=== PATIENT | male | born 1965 | race Hispanic/Latino ===

== ENCOUNTER 2016-11-19 03:23 | Emergency (ER) | payer OTHER ==
[2016-11-19 03:23] VITALS: BMI 37.3
[2016-11-19 03:36] VITALS: BP 111/75; PULSE 85; RESP 20; TEMP 98.2; O2SAT 99
[2016-11-19] MEDS ORDERED: Oxycodone/Acetaminophen 5/325 mg Tab PO STA (03:39)
--- NOTE | 2016-11-19 03:40 | C.PDOC ---
History Of Present Illness 51 year old male who presents to the ER with a complaint of right knee pain for the past 4 days after twisting it while walking. Patient states he has a Hx of chronic right knee pain with a prior meniscus repair. Patient tried to get in contact with his orthopedist but states he is away on vacation. Patient has not had any relief with ibuprofen or tramadol; denies weakness or numbness. History Per: Patient History/Exam Limitations: no limitations Onset/Duration Of Symptoms: Days Current Symptoms Are (Timing): Still Present Recent travel outside of the [place]: No - Knee Description Of Injury: Twisted Past Medical History Reviewed: Historical Data, Nursing Documentation, Vital Signs Vital Signs: Last Vital Signs Temp 98.2 F 11/19/16 03:34 Pulse 85 11/19/16 03:34 Resp 20 11/19/16 03:34 BP 111/75 11/19/16 03:34 Pulse Ox 99 11/19/16 03:51 - Medical History PMH: Arthritis Surgical History: No Surg Hx Family History: States: Unknown Family Hx - Social History Hx Tobacco Use: Yes (half a pack a day ) Hx Alcohol Use: Yes Hx Substance Use: No - Immunization History Hx Tetanus Toxoid Vaccination: No Hx Influenza Vaccination: No Hx Pneumococcal Vaccination: No Review Of Systems Musculoskeletal: Positive for: Leg Pain Neurological: Negative for: Weakness, Numbness Physical Exam - Physical Exam Appears: Non-toxic Skin: Normal Color, Warm, Dry Head: Atraumatic, Normacephalic Eye(s): bilateral: Normal Inspection Oral Mucosa: Moist Neck: Normal ROM Chest: Symmetrical Extremity: Normal ROM, No Tenderness, No Calf Tenderness, No Deformity, Other ( Mild swelling and tenderness to medial aspect of right knee) Neurological/Psych: Oriented x3, Normal Speech, Normal Motor, Normal Sensation, Other (No focal deficits) Gait: Other (using crutches) ED Course And Treatment O2 Sat by Pulse Oximetry: 99 (Room air) Pulse Ox Interpretation: Normal Medical Decision Making Medical Decision Making: [place]Rx reviewed: 10/30/2016 1 10/03/2016 OXYCODONE-ACETAMINOPHEN 5-325 20.0 03/15/2016 1 03/15/2016 OXYCODONE-ACETAMINOPHEN 5-325 30.0 CP applied knee immobilizer Patient has his own crutches Rx given Instructed to follow up with ortho Disposition Counseled Patient/Family Regarding: Diagnosis, Need For Followup, Rx Given - Disposition Referrals: Shaik Chaidez MD [Staff Provider] - Disposition: HOME/ ROUTINE Disposition Time: 03:40 Condition: STABLE Additional Instructions: You need to follow up with your orthopedic and primary doctor for further care take pain medicine as needed Prescriptions: oxyCODONE/Acetaminophen [Percocet 5/325 mg Tab] 1 tab PO Q8 #15 tab Instructions: Knee Sprain (ED) Forms: [employer] (Swedish) - POA Present On Arrival: None - Clinical Impression Clinical Impression: Right knee sprain - Scribe Statement The provider has reviewed the documentation as recorded by the Scribe Jerald Go All medical record entries made by the Scribe were at my direction and personally dictated by me. I have reviewed the chart and agree that the record accurately reflects my personal performance of the history, physical exam, medical decision making, and the department course for this patient. I have also personally directed, reviewed, and agree with the discharge instructions and disposition.
[2016-11-19] MEDS ORDERED: Oxycodone/Acetaminophen 5/325 mg Tab ONE (03:43)
== END 2016-11-19 04:05 | disposition home or self-care (01) ==
LOC: SUPCPDRO 03:23 → C.ER 03:23
DX: S83.91XA Sprain of unspecified site of right knee, initial encounter (principal); X50.9XXA Other and unspecified overexertion or strenuous movements or postures, initial encounter; Y93.01 Activity, walking, marching and hiking

== ENCOUNTER 2017-01-21 13:51 | Emergency (ER) | payer OTHER ==
[2017-01-21 13:51] VITALS: BMI 37.3
[2017-01-21 14:10] VITALS: RESP 18; TEMP 98
--- NOTE | 2017-01-21 14:32 | C.PDOC ---
History Of Present Illness This is a 51 year old male with no pmhx who is presenting with a rash localized to his right forearm since of last week. Patient admits that he was in his back yard doing yard work and came in contact with poison oak. He has had similar infections in the past from coming in contact with these plants in his yard. The rash first appeared on but he states that it worsened by Friday and had clear expansion spatially on his forearm. He had been keeping this area clean by washing it with soap and water for the last 5 days. He has not applied any topical medications. He denies any sign of insect bites. He denies F/C/N/V/D/C/CP/SOB. (Benson Lopez) History Per: Patient History/Exam Limitations: no limitations Onset/Duration Of Symptoms: Days Location Of Injury: Right: Forearm (rash) Quality Of Symptoms: Itching Severity: Mild Pain Scale Rating Of: 2 Recent travel outside of the [place]: No Time Seen by Provider: 01/21/17 14:18 Chief Complaint (Nursing): Abnormal Skin Integrity Past Medical History - Medical History PMH: Arthritis Other Surgeries: right knee arthroscopy Family History: States: Unknown Family Hx - Social History Hx Tobacco Use: Yes (half a pack a day ) Hx Alcohol Use: Yes Hx Substance Use: No - Immunization History Hx Tetanus Toxoid Vaccination: No Hx Influenza Vaccination: No Hx Pneumococcal Vaccination: No Vital Signs: Last Vital Signs Temp 98 F 01/21/17 14:08 Pulse 88 01/21/17 14:08 Resp 18 01/21/17 14:08 BP 136/86 01/21/17 14:08 Pulse Ox 100 01/21/17 14:59 Review Of Systems Constitutional: Negative for: Fever, Chills Eyes: Negative for: Vision Change Cardiovascular: Negative for: Chest Pain, Palpitations Respiratory: Negative for: Cough, Shortness of Breath Gastrointestinal: Negative for: Nausea, Vomiting, Abdominal Pain Genitourinary: Negative for: Dysuria, Frequency Skin: Positive for: Rash (localized to dorsal aspect of right forearm) Neurological: Negative for: Weakness, Numbness Physical Exam - Physical Exam Appears: Well, No Acute Distress Skin: Rash (erythematous, macular rash, diffusely along the dorsal aspect of the right forearm, there are scattered vessicles of different stages, some vessicles have erupted and are emitting serous discharge) Head: Atraumatic, Normacephalic Eye(s): bilateral: Normal Inspection Oral Mucosa: Moist Cardiovascular: Rhythm Regular Respiratory: Decreased Breath Sounds, No Rales, No Rhonchi, No Stridor Gastrointestinal/Abdominal: Soft, No Tenderness, No Distention, No Guarding Neurological/Psych: Oriented x3, Normal Speech, Normal Cognition ED Course And Treatment O2 Sat by Pulse Oximetry: 100 Medical Decision Making Medical Decision Making: Patient admits to contact with poison oak and his clinical presentation corroborates with contact dermatitis. (Benson Lopez) Patient was seen by resident DR. Lopez. I also examined the patient. Patient reports of contact with poison saba to the right arm, dorsal aspect. Patient to be treated with Keflex PO, Prednisone PO and Clobetasol cream for contact dermatitis. (Diaz Fontanez) Disposition Discussed With Dr.: Diaz Fontanez Doctor Will See Patient In The: ED Counseled Patient/Family Regarding: Diagnosis - Disposition Disposition Time: 14:30 - Disposition Disposition: HOME/ ROUTINE Condition: STABLE Additional Instructions: Patient was advised to maintain good hygiene habits regarding keeping his wound clean. We discussed rinsing the area with warm water and soap, gently cleaning the surface of the wound. He was advised to dab the wound dry with a towel and not to irritate the skin with rough drying. We discussed washing all of the clothes he was wearing on the day of contact due to possible residual oils from the plant remaining on his wardrobe. Cold compress may be used for itch relief. Clobetasol topical cream to be used twice daily. Prednisone taper was started with the first dose given to him in ED today, 60mg. He is to take 60mg tomorrow and taper down by 10mg every two days as follows: Day 1: 60mg Day 2: 60mg Day 3: 50mg Day 4: 50mg Day 5: 40mg Day 6: 40mg Day 7: 30mg Day 8: 30mg Day 9: 20mg Day 10: 20mg Day 11: 10mg Day 12: 10mg Keflex was started with first dose given in ED today. He will be taking Keflex 500mg BID x 7days. Patient was advised to follow up with his PCP within one week's time. Patient was informed to return to ED or seek immediate medical attention if his symptoms worsen, intensify, or any other concerns arise. Prescriptions: Cephalexin [cephalexin] 500 mg PO TID #30 cap Clobetasol 0.05% [Temovate] 0.05 % TP BID #30 cream predniSONE [predniSONE Tab] 10 mg PO DAILY #30 tab Instructions: Poison Saba (ED) Forms: [employer] (Filipino) - Clinical Impression Clinical Impression: Contact dermatitis due to poison oak, Contact dermatitis, Contact dermatitis due to poison saba
[2017-01-21 15:35] VITALS: BP 124/75; PULSE 71; O2SAT 98
== END 2017-01-21 15:28 | disposition home or self-care (01) ==
LOC: C.ER 13:51
DX: L25.5 Unspecified contact dermatitis due to plants, except food (principal)